=== PATIENT | male | born 1950 | race Caucasian/White ===

== ENCOUNTER 2017-03-09 20:26 | Emergency (ER) | payer MEDICARE, MEDICAID ==
[2017-03-09] MEDS ORDERED: ONDANSETRON HCL IV 4 MG/2 ML VIAL IM ONE (20:52)
[2017-03-09] MEDS ORDERED: HYDROMORPHONE HCL 1 MG/ML CPJ IM ONE (20:52)
--- NOTE | 2017-03-09 20:58 | Emergency Department Record ---
History of Present Illness - General Chief Complaint: Back Pain/Injury Stated Complaint: BACK PAIN Time Seen by Provider: 03/09/17 20:48 Source: Patient - History of Present Illness Initial Comments: Patient was lifting a very heavy piece of equipment earlier this afternoon when he felt the right side of his lower back "pop." Since then his lower back has been hurting increasingly. Around 3:30 he took two norco/5's (which he has for arthritis pain), but they haven't helped. A heating pad has made it worse, so he came here. The pain radiates into the back and side of his right thigh less than half way down. He has no symptoms in his distal thigh, knee or leg. MD Complaint: Back injury Severity scale (1-10): 8 Quality: Sharp, Stabbing Consistency: Constant Worsens With: Movement, Walking Context: While lifting - Related Data Allergies Allergy/AdvReac Type Severity Reaction Status Date / Time ibuprofen [From Advil] Allergy Intermediate GI upset, Unverified 02/14/17 16:06 rash Penicillins Allergy unknown Unverified 02/14/17 16:06 aspirin AdvReac Intermediate GI upset Unverified 02/14/17 16:06 Travel Screening - Travel/Exposure Within Last 30 Days Have you traveled within the last 30 days?: No Review of Systems Reviewed: No additional complaints except as noted below Constitutional: Reports: As per HPI. Denies: Chills, Fever, Malaise, Night sweats, Weakness, Weight change Eyes: Reports: As per HPI. Denies: Eye discharge, Eye pain, Photophobia, Vision change ENT: Reports: As per HPI. Denies: Congestion, Dental pain, Ear pain, Epistaxis , Hearing loss, Throat pain Respiratory: Reports: As per HPI. Denies: Cough, Dyspnea, Hemoptysis, Stridor, Wheezes Cardiovascular: Reports: As per HPI. Denies: Arrhythmia, Chest pain, Dyspnea on exertion, Edema, Murmurs, Orthopnea, Palpitations, Paroxysmal nocturnal dyspnea, Rheumatic Fever, Syncope Endocrine: Reports: As per HPI. Denies: Fatigue, Heat or cold intolerance, Polydipsia, Polyuria Gastrointestinal: Reports: As per HPI. Denies: Abdominal pain, Constipation, Diarrhea, Hematemesis, Hematochezia, Melena, Nausea, Vomiting Genitourinary: Reports: As per HPI. Denies: Dysuria, Frequency, Hematuria, Incontinence, Retention, Testicular pain, Testicular mass, Urgency Musculoskeletal: Reports: As per HPI. Denies: Arthralgia, Back pain, Gout, Joint swelling, Myalgia, Neck pain Skin: Reports: As per HPI. Denies: Bruising, Change in color, Change in hair/ nails, Lesions, Pruritus, Rash Neurological: Reports: As per HPI. Denies: Abnormal gait, Confusion, Headache, Numbness, Paresthesias, Seizure, Tingling, Tremors, Vertigo, Weakness Psychiatric: Reports: As per HPI. Denies: Anxiety, Auditory hallucinations, Depression, Homicidal thoughts, Suicidal thoughts, Visual hallucinations Hematological/Lymphatic: Reports: As per HPI. Denies: Anemia, Blood Clots, Easy bleeding, Easy bruising, Swollen glands Past Medical History - SOCIAL HISTORY Smoking Status: Former smoker - RESPIRATORY Hx Respiratory Disorders: No - CARDIOVASCULAR Hx Cardio Disorders: No Comment:: walking with cane r/t pain - NEURO Hx Neuro Disorders: No - GI Hx GI Disorders: Yes Hx Reflux: Yes - Hx Genitourinary Disorders: No - ENDOCRINE Hx Endocrine Disorders: No - MUSCULOSKELETAL Hx Musculoskeletal Disorders: Yes Hx Arthritis: Yes (back) Comment:: DJD - PSYCH Hx Psych Problems: No - HEMATOLOGY/ONCOLOGY Hx Hematology/Oncology Disorders: No Family Medical History Any Significant Family History?: Yes Hx HTN: Father, Mother Physical Exam - General General Appearance: Alert, Oriented x3, Cooperative, No acute distress - Head Head exam: Normal inspection - Eye Eye exam: Normal appearance, PERRL Pupils: Normal accommodation - ENT ENT exam: Normal exam, Mucous membranes moist, Normal external ear exam, Normal orophraynx, TM's normal bilaterally Ear exam: Normal external inspection. negative: External canal tenderness Nasal Exam: Normal inspection. negative: Discharge, Sinus tenderness Mouth exam: Normal external inspection, Tongue normal Teeth exam: Normal inspection. negative: Dental caries Throat exam: Normal inspection. negative: Tonsillar erythema, Tonsillar exudate - Neck Neck exam: Normal inspection, Full ROM. negative: Tenderness - Respiratory Respiratory exam: Normal lung sounds bilaterally. negative: Respiratory distress - Cardiovascular Cardiovascular Exam: Regular rate, Normal rhythm, Normal heart sounds - GI/Abdominal GI/Abdominal exam: Soft, Normal bowel sounds. negative: Distended, Guarding, Pulsatile mass, Rebound, Rigid, Tenderness - Rectal Rectal exam: Deferred - exam: Deferred - Extremities Extremities exam: Normal inspection, Full ROM, Normal capillary refill. negative: Tenderness - Back Back exam: Reports: Normal inspection, Full ROM, Muscle spasm, Other (right SI regioni tender on palpation with muscle spasm; no midline bony tenderness; distal pulses strong and equal to feet bilaterally, no motor weakness.). Denies : CVA tenderness (R), CVA tenderness (L), Rash noted, Tenderness, Vertebral tenderness - Neurological Neurological exam: Alert, Normal gait, Oriented X3, Reflexes normal - Psychiatric Psychiatric exam: Normal affect, Normal mood - Skin Skin exam: Dry, Intact, Normal color, Warm Course Vital Signs 03/09/17 20:36 Temperature 97.9 F Pulse Rate 60 Respiratory 18 Rate Blood Pressure 182/105 Pulse Ox 97 - Reevaluation(s) Reevaluation #1: Offered the patient an xray of his back, but he states, "I don't need that, I know what's wrong." He is calling for a ride home which he will need to have after his pain shot. He will follow up with his PCP next week for recheck and possible MRI if symptoms do not improve. Patient understands and agrees. 03/09/17 20:51 03/09/17 20:58 Reevaluation #2: Patient states he has enough norco for his back pain and will follow up with his PCP. 03/09/17 21:04 Medical Decision Making - Management Options MDM Management: No Additional Work-up Planned Disposition Disposition: Discharge Clinical Impression: Sciatica of right side Low back strain Qualifiers: Encounter type: initial encounter Qualified Code(s): S39.012A - Strain of muscle, fascia and tendon of lower back, initial encounter Disposition: Home, Self-Care Condition: (1) Good Instructions: Low Back Strain (ED), Sciatica (ED) Additional Instructions: Home, flat bed rest. Do not drive tonight. No lifting bending twisting. Gentle stretches. Ice to area intermittently first 48-72 hours. Take your norco as directed as needed for pain. Follow up with PCP next week if not improved. Consider MRI if not improving. Forms: Patient Portal Access
== END 2017-03-09 21:54 | disposition home or self-care (01) ==
LOC: ER 20:26
DX: S39.012A Strain of muscle, fascia and tendon of lower back, initial encounter (principal); M54.41 Lumbago with sciatica, right side; X50.0XXA Overexertion from strenuous movement or load, initial encounter
CPT/HCPCS: 99283 ×2; 96372; J2405; J1170

== ENCOUNTER 2018-06-23 17:10 | Emergency (ER) | payer MEDICARE, MEDICAID ==
--- NOTE | 2018-06-23 18:25 | Emergency Department Record ---
History of Present Illness - General Chief complaint: Pain Stated complaint: INJURY TO LEFT SIDE RIBS Time Seen by Provider: 06/23/18 18:14 Source: Patient Mode of Arrival: Ambulatory Limitations: No limitations - History of Present Illness Initial comments: 67 yo male presents with left rib pain. He was using a power wheel kids toys down a hill and fell. He injured his left ribs. No injury to the head or neck. No abdominal pain. Intact skin without bruising or abrasions. It hurts to touch the mid lateral ribs. He denies any other injuries. The injury occurred about 4pm. MD Complaint: Other (Rib pain) Onset/Timin -: Days(s) Location: Left, Other History of Same: No -: Yes Myalgia Severity scale (1-10): 5 Quality: Sharp, Stabbing Consistency: Intermittent Improves with: Immobilization, Rest Worsens with: Exertion - Related Data Home Medications Medication Instructions Recorded Confirmed Last Taken Omeprazole [Prilosec] 20 mg PO DAILY 06/23/18 06/23/18 06/23/18 Previous Rx's Medication Instructions Recorded Lidocaine Patch [Lidoderm] 1 ea TOP DAILY #14 patch 06/23/18 Allergies Allergy/AdvReac Type Severity Reaction Status Date / Time ibuprofen [From Advil] Allergy Intermediate GI upset, Verified 06/23/18 17:28 rash Penicillins Allergy unknown Verified 06/23/18 17:28 aspirin AdvReac Intermediate GI upset Verified 06/23/18 17:28 Travel Screening - Travel/Exposure Within Last 30 Days Have you traveled within the last 30 days?: No - Travel/Exposure Within Last Year Have you traveled outside the [place] in the last year?: No - Additonal Travel Details Have you been exposed to anyone with a communicable illness?: No - Travel Symptoms Symptom Screening: None Review of Systems Constitutional: Denies: Chills, Fever, Malaise, Weakness Eyes: Denies: Eye discharge ENT: Denies: Congestion, Throat pain Respiratory: Denies: Cough, Dyspnea, Hemoptysis, Stridor, Wheezes Cardiovascular: Reports: Chest pain (Left ribs, mid chest). Denies: Palpitations, Syncope Endocrine: Denies: Fatigue Gastrointestinal: Denies: Abdominal pain, Diarrhea, Nausea, Vomiting Genitourinary: Denies: Dysuria, Frequency, Hematuria Musculoskeletal: Denies: Arthralgia, Back pain, Joint swelling, Myalgia, Neck pain Skin: Denies: Bruising, Change in color Neurological: Denies: Confusion, Headache Psychiatric: Denies: Anxiety Hematological/Lymphatic: Denies: Blood Clots, Easy bleeding, Easy bruising, Swollen glands Past Medical History - SOCIAL HISTORY Smoking Status: Former smoker Alcohol Use: None Drug Use: Occasional Drug Use Detail:: Marijuana - RESPIRATORY Hx Respiratory Disorders: No - CARDIOVASCULAR Hx Cardio Disorders: No Comment:: walking with cane r/t pain - NEURO Hx Neuro Disorders: No - GI Hx GI Disorders: Yes Hx Reflux: Yes - Hx Genitourinary Disorders: No - ENDOCRINE Hx Endocrine Disorders: No - MUSCULOSKELETAL Hx Musculoskeletal Disorders: Yes Hx Arthritis: Yes (back) Comment:: DJD - PSYCH Hx Psych Problems: No - HEMATOLOGY/ONCOLOGY Hx Hematology/Oncology Disorders: No Family Medical History Any Significant Family History?: Yes Hx HTN: Father, Mother Physical Exam - General General Appearance: Alert, Oriented x3, Cooperative, No acute distress Limitations: No limitations - Head Head exam: Atraumatic, Normocephalic, Normal inspection Head exam detail: negative: Abrasion, Contusion, General tenderness, Hematoma, Laceration - Eye Eye exam: Normal appearance, PERRL. negative: Conjunctival injection, Periorbital swelling - ENT ENT exam: Normal exam, Mucous membranes moist, Normal orophraynx Ear exam: Normal external inspection Nasal Exam: Normal inspection Mouth exam: Normal external inspection Teeth exam: Normal inspection Throat exam: Normal inspection - Neck Neck exam: Normal inspection, Full ROM. negative: Tenderness - Respiratory Respiratory exam: Normal lung sounds bilaterally, Chest wall tenderness (point tender left rib, mid chest, no LUQ tenderness, normal inspection, no bruisinig) . negative: Accessory muscle use, Decreased breath sounds, Prolonged expiratory , Respiratory distress, Rhonchi, Stridor, Wheezes - Cardiovascular Cardiovascular Exam: Regular rate, Normal rhythm, Normal heart sounds Peripheral Pulses: 2+: Radial (R), Radial (L) - GI/Abdominal GI/Abdominal exam: Soft. negative: Distended, Guarding, Rebound, Rigid, Tenderness - Rectal Rectal exam: Deferred - exam: Deferred - Extremities Extremities exam: Normal inspection, Full ROM, Normal capillary refill. negative: Calf tenderness, Joint swelling, Pedal edema, Tenderness - Back Back exam: Reports: Full ROM. Denies: Normal inspection, CVA tenderness (R), CVA tenderness (L), Muscle spasm, Paraspinal tenderness, Rash noted, Tenderness , Vertebral tenderness - Neurological Neurological exam: Alert, CN II-XII intact, Normal gait, Oriented X3. negative : Motor sensory deficit - Psychiatric Psychiatric exam: Normal affect, Normal mood - Skin Skin exam: Dry, Intact, Normal color, Warm Course Vital Signs 06/23/18 17:31 Temperature 98.4 F Pulse Rate 75 Respiratory 16 Rate Blood Pressure 138/91 Pulse Ox 99 - Reevaluation(s) Reevaluation #1: The vitals were reviewed The patient has mid chest lateral tenderness. No other injuries. No abdominal , flank, or LUQ tenderness. Lower rib margins are non tender. 06/23/18 18:22 06/23/18 19:02 The XR was read as negative We discussed the results, home care, and reasons to return to the ED Disposition Disposition: Discharge Clinical Impression: Contusion of rib on left side, Left rib fracture Disposition: Home, Self-Care Condition: (1) Good Instructions: Rib Fracture (ED), Rib Contusion (ED) Additional Instructions: Return to the ED if you have any worsening pain Avoid lifting or activity that cause the pain Call your doctor for a recheck this week. Prescriptions: Lidocaine Patch [Lidoderm] 1 ea TOP DAILY #14 patch Forms: Patient Portal Access Time of Disposition: 19:04 Quality - Quality Measures Quality Measures: N/A - Blood Pressure Screening Does Patient Have Any of the Following: No Blood Pressure Classification: Hypertensive Reading Systolic Measurement: 138 Diastolic Measurement: 91 Screening for High Blood Pressure: < Pre-Hypertensive BP, F/U Documented > [ [id number]] Pre-Hypertensive Follow-up Interventions: Referral to alternative/primary care provider.
--- NOTE | 2018-06-25 14:44 | RADIOLOGY REPORT ---
EXAM: LEFT RIB SERIES HISTORY: INJURY TWO DAYS PRIOR, LEFT CHEST PAIN. TECHNIQUE: PA view of the chest and three views of the left ribs were obtained. Comparison: Chest radiographs 09/15/14. FINDINGS: The cardiac silhouette is within normal size limits. The thoracic aorta is calcified and mildly tortuous. The pulmonary vasculature is nondilated. No focal consolidation. No pleural effusion. No pneumothorax. No definite displaced rib fractures are seen. There are multilevel degenerative changes of the thoracic and lumbar spine. IMPRESSION: NO ACUTE LUNG FINDINGS. NO DISPLACED RIB FRACTURES IDENTIFIED. JOB NUMBER: [id number] MTDD
== END 2018-06-23 19:11 | disposition home or self-care (01) ==
LOC: ER 17:10
DX: S22.32XA Fracture of one rib, left side, initial encounter for closed fracture (principal); W17.81XA Fall down embankment (hill), initial encounter; Z87.891 Personal history of nicotine dependence
CPT/HCPCS: 99283

== ENCOUNTER 2018-07-13 23:41 | Emergency (ER) | payer MEDICARE, MEDICAID ==
--- NOTE | 2018-07-13 23:53 | Emergency Department Record ---
History of Present Illness - General Chief Complaint: Hypertension Stated Complaint: HYPERTENSION Source: Patient Mode of Arrival: Ambulatory Limitations: No limitations - History of Present Illness Initial Comments: 68 yo male presents with concerns about his blood pressure. He was seen on the by his PCP. His BP was noted to be elevated at that time. He was started on Lisinopril. His BP was check this evening as was noted to be elevated. He is not having any current symptoms. No dizziness, headaches, vision changes, speech changes, chest pain, shortness of breath, cough, leg swelling, back or abdominal pain. He has labs performed recently as well. There were no acute abnormalities. CR was 1.1. MD Complaint: Other (Asymptomatic elevated blood pressure) -: Days(s) (1) Timing: Intermittent Description: Other (No symptoms) History of Same: Yes Improves With: Nothing Worsens With: Nothing Associated Symptoms: Other (anxiety) - Shannon Coma Scale Eye Response: (4) Open spontaneously Motor Response: (6) Obeys commands Verbal Response: (5) Oriented Shannon Total: 15 - Related Data Allergies Allergy/AdvReac Type Severity Reaction Status Date / Time ibuprofen [From Advil] Allergy Intermediate GI upset, Verified 07/13/18 23:45 rash Penicillins Allergy unknown Verified 07/13/18 23:45 aspirin AdvReac Intermediate GI upset Verified 07/13/18 23:45 Review of Systems Constitutional: Denies: Chills, Fever, Malaise, Weakness Eyes: Denies: Eye discharge, Eye pain, Photophobia, Vision change ENT: Denies: Congestion, Ear pain, Throat pain Respiratory: Denies: Cough, Dyspnea Cardiovascular: Denies: Chest pain, Palpitations, Syncope Endocrine: Denies: Fatigue Gastrointestinal: Denies: Abdominal pain, Diarrhea, Nausea, Vomiting Genitourinary: Denies: Dysuria, Frequency, Hematuria Musculoskeletal: Reports: Myalgia (just now in the room his left calf hurt). Denies: Arthralgia, Back pain, Neck pain Skin: Denies: Bruising, Change in color, Rash Neurological: Denies: Abnormal gait, Confusion, Headache, Numbness, Seizure, Tingling, Tremors, Vertigo, Weakness Psychiatric: Reports: Anxiety Hematological/Lymphatic: Denies: Blood Clots, Easy bleeding, Easy bruising Past Medical History - SOCIAL HISTORY Smoking Status: Former smoker Drug Use: Occasional Drug Use Detail:: Marijuana - RESPIRATORY Hx Respiratory Disorders: No - CARDIOVASCULAR Hx Cardio Disorders: No Comment:: walking with cane r/t pain - NEURO Hx Neuro Disorders: No - GI Hx GI Disorders: Yes Hx Reflux: Yes - Hx Genitourinary Disorders: No - ENDOCRINE Hx Endocrine Disorders: No - MUSCULOSKELETAL Hx Musculoskeletal Disorders: Yes Hx Arthritis: Yes (back) Comment:: DJD - PSYCH Hx Psych Problems: No - HEMATOLOGY/ONCOLOGY Hx Hematology/Oncology Disorders: No Family Medical History Hx HTN: Father, Mother Physical Exam - General General Appearance: Alert, Oriented x3, Cooperative, No acute distress Limitations: No limitations - Head Head exam: Atraumatic, Normocephalic, Normal inspection - Eye Eye exam: Normal appearance, PERRL, EOMI. negative: Conjunctival injection, Nystagmus, Periorbital swelling, Scleral icterus - ENT ENT exam: Normal exam, Mucous membranes moist, Normal orophraynx Ear exam: Normal external inspection Nasal Exam: Normal inspection Mouth exam: Normal external inspection - Neck Neck exam: Normal inspection - Respiratory Respiratory exam: Normal lung sounds bilaterally. negative: Respiratory distress - Cardiovascular Cardiovascular Exam: Regular rate, Normal rhythm, Normal heart sounds - GI/Abdominal GI/Abdominal exam: Soft. negative: Tenderness - Rectal Rectal exam: Deferred - exam: Deferred - Extremities Extremities exam: Normal inspection. negative: Calf tenderness, Pedal edema, Tenderness - Back Back exam: Reports: Normal inspection - Neurological Neurological exam: Alert, CN II-XII intact, Normal gait, Oriented X3. negative : Abnormal gait, Altered, Motor sensory deficit - Psychiatric Psychiatric exam: Anxious - Skin Skin exam: Dry, Intact, Normal color, Warm Course Vital Signs 07/13/18 23:43 Temperature 98.4 F Pulse Rate [ 70 Pulse Ox Probe] Respiratory 20 Rate Blood Pressure 199/111 [Left Arm] Pulse Ox 99 - Reevaluation(s) Reevaluation #1: The patient has asymptomatic hypertension He just started a new medication this week His labs were reviewed. No end organ injury. He is not having any current symptoms to suggest hypertensive urgency/emergency I reassured him regarding his BP that he just started treatment and will need to continue his medication that were started in the last 3 days. He will recheck with his doctor this week regarding his blood pressure We discussed symptoms that should prompt him to immediately return to the ED 07/13/18 23:51 Disposition Disposition: Discharge Clinical Impression: Asymptomatic hypertension Disposition: Home, Self-Care Condition: (1) Good Instructions: Hypertension (ED) Additional Instructions: Call your doctor to check your blood pressure this week Take your new medication as directed Return if you have headache, vision changes, dizziness, chest pain, short of breath, swelling or new concerns Forms: Patient Portal Access Quality - Quality Measures Quality Measures: N/A - Blood Pressure Screening Does Patient Have Any of the Following: Active Dx of HTN Blood Pressure Classification: Hypertensive Reading Systolic Measurement: 170 Diastolic Measurement: 108 Screening for High Blood Pressure: Patient Exclusion, Hx of HTN [G9744]
== END 2018-07-14 00:12 | disposition home or self-care (01) ==
LOC: ER 23:41
DX: I10 Essential (primary) hypertension (principal); Z87.891 Personal history of nicotine dependence
CPT/HCPCS: 99282

== ENCOUNTER 2018-07-16 17:13 | Emergency (ER) | payer MEDICARE, MEDICAID ==
[2018-07-16] MEDS ORDERED: CLONIDINE HCL 0.1 MG TABLET PO ONE (17:37)
--- NOTE | 2018-07-16 17:39 | Emergency Department Record ---
History of Present Illness - General Chief Complaint: Hypertension Stated Complaint: HIGH BLOOD PRESSURE Time Seen by Provider: 07/16/18 17:28 Source: Patient Mode of Arrival: Ambulatory - History of Present Illness Initial Comments: patient here with high Blood pressure and he saw Dr. Conde and his lisinopril was doubled and he has not taken that yet and he came to the Ed for advise. patient did not bring his meds in to confirm what dose of lisinopril he is taking. Patient denies chest pain headache and any problems moving his arms or legs. No abdominal pain and he is seeing his Dr in one week. His mom and dad had hypertension and previous to this diag he was a heavy salt eater and that has been stopped and he is cutting back on his pepsi Onset/Timin -: Week(s) Timing: Gradual onset History of Same: No History of Trauma: No Improves With: Medication Worsens With: Nothing Associated Symptoms: Denies other symptoms - Shannon Coma Scale Eye Response: (4) Open spontaneously Motor Response: (6) Obeys commands Verbal Response: (5) Oriented Shannon Total: 15 - Related Data Allergies Allergy/AdvReac Type Severity Reaction Status Date / Time ibuprofen [From Advil] Allergy Intermediate GI upset, Verified 07/16/18 17:21 rash Penicillins Allergy unknown Verified 07/16/18 17:21 aspirin AdvReac Intermediate GI upset Verified 07/16/18 17:21 Travel Screening - Travel/Exposure Within Last 30 Days Have you traveled within the last 30 days?: No - Travel/Exposure Within Last Year Have you traveled outside the [place] in the last year?: No - Additonal Travel Details Have you been exposed to anyone with a communicable illness?: No - Travel Symptoms Symptom Screening: None Review of Systems Reviewed: No additional complaints except as noted below Constitutional: Reports: As per HPI. Denies: Chills, Fever, Malaise, Night sweats, Weakness, Weight change Eyes: Reports: As per HPI. Denies: Eye discharge, Eye pain, Photophobia, Vision change ENT: Reports: As per HPI. Denies: Congestion, Dental pain, Ear pain, Epistaxis , Hearing loss, Throat pain Respiratory: Reports: As per HPI. Denies: Cough, Dyspnea, Hemoptysis, Stridor, Wheezes Cardiovascular: Reports: As per HPI. Denies: Arrhythmia, Chest pain, Dyspnea on exertion, Edema, Murmurs, Orthopnea, Palpitations, Paroxysmal nocturnal dyspnea, Rheumatic Fever, Syncope Endocrine: Reports: As per HPI. Denies: Fatigue, Heat or cold intolerance, Polydipsia, Polyuria Gastrointestinal: Reports: As per HPI. Denies: Abdominal pain, Constipation, Diarrhea, Hematemesis, Hematochezia, Melena, Nausea, Vomiting Genitourinary: Reports: As per HPI. Denies: Dysuria, Frequency, Hematuria, Incontinence, Retention, Testicular pain, Testicular mass, Urgency Musculoskeletal: Reports: As per HPI. Denies: Arthralgia, Back pain, Gout, Joint swelling, Myalgia, Neck pain Skin: Reports: As per HPI. Denies: Bruising, Change in color, Change in hair/ nails, Lesions, Pruritus, Rash Neurological: Reports: As per HPI. Denies: Abnormal gait, Confusion, Headache, Numbness, Paresthesias, Seizure, Tingling, Tremors, Vertigo, Weakness Psychiatric: Reports: As per HPI. Denies: Anxiety, Auditory hallucinations, Depression, Homicidal thoughts, Suicidal thoughts, Visual hallucinations Hematological/Lymphatic: Reports: As per HPI. Denies: Anemia, Blood Clots, Easy bleeding, Easy bruising, Swollen glands Past Medical History - SOCIAL HISTORY Smoking Status: Former smoker Alcohol Use: None Drug Use: Occasional Drug Use Detail:: Marijuana - RESPIRATORY Hx Respiratory Disorders: No - CARDIOVASCULAR Hx Cardio Disorders: No Comment:: walking with cane r/t pain - NEURO Hx Neuro Disorders: No - GI Hx GI Disorders: Yes Hx Reflux: Yes - Hx Genitourinary Disorders: No - ENDOCRINE Hx Endocrine Disorders: No - MUSCULOSKELETAL Hx Musculoskeletal Disorders: Yes Hx Arthritis: Yes (back) Comment:: DJD - PSYCH Hx Psych Problems: No - HEMATOLOGY/ONCOLOGY Hx Hematology/Oncology Disorders: No Family Medical History Any Significant Family History?: Yes Hx HTN: Father, Mother Physical Exam - General General Appearance: Alert, Oriented x3, Cooperative, No acute distress - Head Head exam: Normal inspection - Eye Eye exam: Normal appearance, PERRL Pupils: Normal accommodation - ENT ENT exam: Normal exam, Mucous membranes moist, Normal external ear exam, Normal orophraynx, TM's normal bilaterally Ear exam: Normal external inspection. negative: External canal tenderness Nasal Exam: Normal inspection. negative: Discharge, Sinus tenderness Mouth exam: Normal external inspection, Tongue normal Teeth exam: Normal inspection. negative: Dental caries Throat exam: Normal inspection. negative: Tonsillar erythema, Tonsillar exudate - Neck Neck exam: Normal inspection, Full ROM. negative: Tenderness - Respiratory Respiratory exam: Normal lung sounds bilaterally. negative: Respiratory distress - Cardiovascular Cardiovascular Exam: Regular rate, Normal rhythm, Normal heart sounds - GI/Abdominal GI/Abdominal exam: Soft, Normal bowel sounds. negative: Tenderness - Rectal Rectal exam: Deferred - exam: Deferred - Extremities Extremities exam: Normal inspection, Full ROM, Normal capillary refill. negative: Tenderness - Back Back exam: Reports: Normal inspection, Full ROM. Denies: Muscle spasm, Rash noted, Tenderness - Neurological Neurological exam: Alert, Normal gait, Oriented X3, Reflexes normal - Psychiatric Psychiatric exam: Normal affect, Normal mood - Skin Skin exam: Dry, Intact, Normal color, Warm Course Vital Signs 07/16/18 17:23 Temperature 98 F Pulse Rate 67 Respiratory 20 Rate Blood Pressure 190/100 Pulse Ox 100 - Reevaluation(s) Reevaluation #1: 07/16/18 17:59 bp came down and patient feels more comfortable going home he was concerned about the numbers Disposition Clinical Impression: Hypertension Qualifiers: Hypertension type: essential hypertension Qualified Code(s): I10 - Essential ( primary) hypertension Disposition: Home, Self-Care Condition: (1) Good Instructions: Hypertension (ED) Additional Instructions: follow up with Dr. Conde as planned next week and start his new medication tomorrow as planned Time of Disposition: 17:59 Quality - Quality Measures Quality Measures: N/A - Blood Pressure Screening Does Patient Have Any of the Following: No, Active Dx of HTN Blood Pressure Classification: Hypertensive Reading Systolic Measurement: 190 Diastolic Measurement: 100 Screening for High Blood Pressure: Patient Exclusion, Hx of HTN [G9744]
== END 2018-07-16 18:05 | disposition home or self-care (01) ==
LOC: ER 17:13
DX: I10 Essential (primary) hypertension (principal); Z87.891 Personal history of nicotine dependence
CPT/HCPCS: 99282

== ENCOUNTER 2018-09-10 18:15 | Emergency (ER) | payer MEDICARE, MEDICAID ==
--- NOTE | 2018-09-10 18:44 | Emergency Department Record ---
History of Present Illness - General Chief Complaint: Recheck - Other Stated Complaint: ELEVATED TEST LEVEL Time Seen by Provider: 09/10/18 18:31 Source: Patient - History of Present Illness Initial Comments: patient was called by his Dr Conde and told to come to the ED for evaluation of his BP being low and his creatine went up to 1.6 and bun is 30 previous creat 1.1 and he denies chest pain or dyspnea and he was told by his Dr to come for evaluation. Patient is not dizzy and not SOB and no chest pain. Onset/Timin -: Hour(s) Initial Visit For: Other Returns Today for: Called because of abnormal lab/test Symptoms Since Prior Visit: No new symptoms - Related Data Home Medications Medication Instructions Recorded Confirmed Last Taken Omeprazole 40 mg PO DAILY 09/10/18 09/10/18 09/10/18 Allergies Allergy/AdvReac Type Severity Reaction Status Date / Time ibuprofen [From Advil] Allergy Intermediate GI upset, Verified 09/10/18 18:23 rash Penicillins Allergy unknown Verified 09/10/18 18:23 aspirin AdvReac Intermediate GI upset Verified 09/10/18 18:23 Travel Screening - Travel/Exposure Within Last 30 Days Have you traveled within the last 30 days?: No - Travel/Exposure Within Last Year Have you traveled outside the [place] in the last year?: No - Additonal Travel Details Have you been exposed to anyone with a communicable illness?: No - Travel Symptoms Symptom Screening: None Review of Systems Reviewed: No additional complaints except as noted below Constitutional: Reports: As per HPI. Denies: Chills, Fever, Malaise, Night sweats, Weakness, Weight change Eyes: Reports: As per HPI. Denies: Eye discharge, Eye pain, Photophobia, Vision change ENT: Reports: As per HPI. Denies: Congestion, Dental pain, Ear pain, Epistaxis , Hearing loss, Throat pain Respiratory: Reports: As per HPI. Denies: Cough, Dyspnea, Hemoptysis, Stridor, Wheezes Cardiovascular: Reports: As per HPI. Denies: Arrhythmia, Chest pain, Dyspnea on exertion, Edema, Murmurs, Orthopnea, Palpitations, Paroxysmal nocturnal dyspnea, Rheumatic Fever, Syncope Endocrine: Reports: As per HPI. Denies: Fatigue, Heat or cold intolerance, Polydipsia, Polyuria Gastrointestinal: Reports: As per HPI. Denies: Abdominal pain, Constipation, Diarrhea, Hematemesis, Hematochezia, Melena, Nausea, Vomiting Genitourinary: Reports: As per HPI. Denies: Dysuria, Frequency, Hematuria, Incontinence, Retention, Testicular pain, Testicular mass, Urgency Musculoskeletal: Reports: As per HPI. Denies: Arthralgia, Back pain, Gout, Joint swelling, Myalgia, Neck pain Skin: Reports: As per HPI. Denies: Bruising, Change in color, Change in hair/ nails, Lesions, Pruritus, Rash Neurological: Reports: As per HPI. Denies: Abnormal gait, Confusion, Headache, Numbness, Paresthesias, Seizure, Tingling, Tremors, Vertigo, Weakness Psychiatric: Reports: As per HPI. Denies: Anxiety, Auditory hallucinations, Depression, Homicidal thoughts, Suicidal thoughts, Visual hallucinations Hematological/Lymphatic: Reports: As per HPI. Denies: Anemia, Blood Clots, Easy bleeding, Easy bruising, Swollen glands Past Medical History - SOCIAL HISTORY Smoking Status: Former smoker Alcohol Use: None Drug Use: Heavy Drug Use Detail:: Marijuana - RESPIRATORY Hx Respiratory Disorders: No - CARDIOVASCULAR Hx Cardio Disorders: No Comment:: walking with cane r/t pain - NEURO Hx Neuro Disorders: No - GI Hx GI Disorders: Yes Hx Reflux: Yes - Hx Genitourinary Disorders: No - ENDOCRINE Hx Endocrine Disorders: No - MUSCULOSKELETAL Hx Musculoskeletal Disorders: Yes Hx Arthritis: Yes (back) Comment:: DJD - PSYCH Hx Psych Problems: No - HEMATOLOGY/ONCOLOGY Hx Hematology/Oncology Disorders: No Family Medical History Any Significant Family History?: Yes Hx HTN: Father, Mother Physical Exam - General General Appearance: Alert, Oriented x3, Cooperative, No acute distress - Head Head exam: Normal inspection - Eye Eye exam: Normal appearance, PERRL Pupils: Normal accommodation - ENT ENT exam: Normal exam, Mucous membranes moist, Normal external ear exam, Normal orophraynx, TM's normal bilaterally Ear exam: Normal external inspection. negative: External canal tenderness Nasal Exam: Normal inspection. negative: Discharge, Sinus tenderness Mouth exam: Normal external inspection, Tongue normal Teeth exam: Normal inspection. negative: Dental caries Throat exam: Normal inspection. negative: Tonsillar erythema, Tonsillar exudate - Neck Neck exam: Normal inspection, Full ROM. negative: Tenderness - Respiratory Respiratory exam: Normal lung sounds bilaterally. negative: Respiratory distress - Cardiovascular Cardiovascular Exam: Regular rate, Normal rhythm, Normal heart sounds - GI/Abdominal GI/Abdominal exam: Soft, Normal bowel sounds. negative: Tenderness - Rectal Rectal exam: Deferred - exam: Deferred - Extremities Extremities exam: Normal inspection, Full ROM, Normal capillary refill. negative: Tenderness - Back Back exam: Reports: Normal inspection, Full ROM. Denies: Muscle spasm, Rash noted, Tenderness - Neurological Neurological exam: Alert, Normal gait, Oriented X3, Reflexes normal - Psychiatric Psychiatric exam: Normal affect, Normal mood - Skin Skin exam: Dry, Intact, Normal color, Warm Course Vital Signs 09/10/18 18:25 Temperature 98.1 F Pulse Rate 78 Respiratory 20 Rate Blood Pressure 93/67 Pulse Ox 97 Medical Decision Making - Lab Data Result diagrams: 09/10/18 18:35 09/10/18 18:35 Disposition Clinical Impression: Dehydration Hypotension Qualifiers: Hypotension type: hypotension due to hypovolemia Qualified Code(s): I95.89 - Other hypotension; E86.1 - Hypovolemia Disposition: Home, Self-Care Condition: (1) Good Additional Instructions: follow up with Dr. Conde in one week take one half of chlorthalidone 12.5 mg per day and see your DrPrieto in one week and have the creat checked again Forms: Patient Portal Access Time of Disposition: 18:57 Quality - Quality Measures Quality Measures: N/A - Blood Pressure Screening Does Patient Have Any of the Following: No Blood Pressure Classification: Normal BP Reading Systolic Measurement: 93 Diastolic Measurement: 67 Screening for High Blood Pressure: < Normal BP, F/U Not Required > [G8783]
[2018-09-10 18:58] LABS: BASO % 0.5 % (0-6); EOS % 3.7 % (0-6); GRAN % 60.9 % (47-80); HEMATOCRIT 41.3 % (42.0-52.0); HEMOGLOBIN 14.8 gm/dl (14.0-18.0); MEAN CELL VOLUME 90.2 fl (81-97); MEAN CORPUSCULAR HEMOGLOBIN 32.3 pg (27-33); MEAN CORPUSCULAR HGB CONC 35.8 g/dl (32-36); MEAN PLATELET VOLUME 11.1 fl (7.4-10.4); MONO % 6.9 % (0-9); PLATELET COUNT 224 K/uL (130-400); RED BLOOD COUNT 4.58 M/uL (4.40-5.70); URINE APPEARANCE CLEAR; URINE BILIRUBIN NEGATIVE (NEGATIVE); URINE BLOOD NEGATIVE (NEGATIVE); URINE COLOR YELLOW; URINE GLUCOSE (UA) NEGATIVE (NEGATIVE); URINE KETONE NEGATIVE (NEGATIVE); URINE LEUKOCYTE ESTERASE NEGATIVE (NEGATIVE); URINE NITRITE NEGATIVE (NEGATIVE); URINE PROTEIN NEGATIVE (NEGATIVE); URINE UROBILINOGEN 0.2 E.U./dL (0.20 - 1.00); WHITE BLOOD COUNT W/O DIFF 7.4 K/uL (4.2-12.2)
[2018-09-10 19:12] LABS: CREATININE 1.9 mg/dL (0.7-1.2)
== END 2018-09-10 19:11 | disposition home or self-care (01) ==
LOC: ER 18:15
DX: I95.89 Other hypotension (principal); E86.0 Dehydration; E86.1 Hypovolemia
CPT/HCPCS: 80048; 81003; 85025; 99283

== ENCOUNTER 2018-12-09 18:14 | Observation (INO) | payer MEDICARE, MEDICAID ==
--- NOTE | 2018-12-09 18:29 | Emergency Department Record ---
History of Present Illness - General Chief complaint: Extremity Problem Stated complaint: LEG PAIN Time Seen by Provider: 12/09/18 18:24 Source: Patient Mode of Arrival: Ambulatory Limitations: No limitations - History of Present Illness Initial comments: 68 yo male presents to ED for evaluation of bilateral calf pain for the past several days associated with swelling symptoms. 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 Patient talked with his PCP, was told to elevated his lower extremities to reduce swelling which did improve his symptoms. Patient denies history of DVT, does report a history of HTN that he takes Norvasc for. Patient also reports taking [place] for his symptoms that helped somewhat. MD Complaint: Extremity pain, Extremity swelling Onset/Timin -: Days(s) Location: Bilateral, Lower Leg History of Same: No Radiation: None Quality: Aching Consistency: Constant Improves with: Elevation Worsens with: Walking, Weight bearing Associated Symptoms: Denies other symptoms - Related Data Allergies Allergy/AdvReac Type Severity Reaction Status Date / Time ibuprofen [From Advil] Allergy Intermediate GI upset, Verified 12/09/18 18:18 rash Iodinated Contrast- Oral and Allergy ANAPHYLAXIS Verified 12/09/18 22:35 IV Dye Penicillins Allergy unknown Verified 12/09/18 18:18 aspirin AdvReac Intermediate GI upset Verified 12/09/18 18:18 Travel Screening - Travel/Exposure Within Last 30 Days Have you traveled within the last 30 days?: No - Travel/Exposure Within Last Year Have you traveled outside the [place] in the last year?: No - Additonal Travel Details Have you been exposed to anyone with a communicable illness?: No - Travel Symptoms Symptom Screening: None Review of Systems Constitutional: Denies: Chills, Fever, Malaise, Night sweats Eyes: Denies: Eye discharge, Eye pain ENT: Denies: Congestion, Ear pain, Epistaxis Respiratory: Denies: Cough, Dyspnea Cardiovascular: Denies: Chest pain, Dyspnea on exertion Endocrine: Denies: Fatigue, Heat or cold intolerance Gastrointestinal: Denies: Abdominal pain, Nausea, Vomiting Genitourinary: Denies: Incontinence, Retention Musculoskeletal: Reports: Myalgia. Denies: Arthralgia, Back pain Skin: Denies: Bruising, Change in color Neurological: Denies: Abnormal gait, Confusion, Headache, Tingling, Tremors Psychiatric: Denies: Anxiety Hematological/Lymphatic: Denies: Anemia, Blood Clots Past Medical History - SOCIAL HISTORY Smoking Status: Former smoker Alcohol Use: None Drug Use: None - RESPIRATORY Hx Respiratory Disorders: No - CARDIOVASCULAR Hx Cardio Disorders: No Comment:: walking with cane r/t pain - NEURO Hx Neuro Disorders: No - GI Hx GI Disorders: Yes Hx Reflux: Yes - Hx Genitourinary Disorders: No - ENDOCRINE Hx Endocrine Disorders: No - MUSCULOSKELETAL Hx Musculoskeletal Disorders: Yes Hx Arthritis: Yes (back) Comment:: DJD - PSYCH Hx Psych Problems: No - HEMATOLOGY/ONCOLOGY Hx Hematology/Oncology Disorders: No Family Medical History Any Significant Family History?: Yes Hx HTN: Father, Mother Physical Exam - General General Appearance: Alert, Oriented x3, Cooperative, No acute distress Limitations: No limitations - Head Head exam: Atraumatic, Normocephalic, Normal inspection Head exam detail: negative: Abrasion, Contusion, Rankin's sign, General tenderness, Hematoma, Laceration - Eye Eye exam: Normal appearance. negative: Conjunctival injection, Periorbital swelling, Periorbital tenderness, Scleral icterus - ENT Ear exam: negative: Auricular hematoma, Auricular trauma Nasal Exam: negative: Active bleeding, Discharge, Dried blood, Foreign body Mouth exam: negative: Drooling, Laceration, Muffled voice, Tongue elevation - Neck Neck exam: Normal inspection. negative: Meningismus, Tenderness - Respiratory Respiratory exam: Normal lung sounds bilaterally. negative: Respiratory distress, Rhonchi, Stridor, Wheezes - Cardiovascular Cardiovascular Exam: Regular rate, Normal rhythm, Normal heart sounds - GI/Abdominal GI/Abdominal exam: Soft. negative: Rebound, Rigid, Tenderness - Rectal Rectal exam: Deferred - exam: Deferred - Extremities Extremities exam: Calf tenderness, Full ROM - Back Back exam: Denies: CVA tenderness (R), CVA tenderness (L) - Neurological Neurological exam: Alert, Normal gait, Oriented X3 - Psychiatric Psychiatric exam: Normal affect, Normal mood - Skin Skin exam: Normal color. negative: Abrasion Type of lesion: negative: abrasion Course Vital Signs 12/09/18 18:19 Temperature 97.9 F Pulse Rate 77 Respiratory 18 Rate Blood Pressure 144/88 Pulse Ox 100 - Reevaluation(s) Reevaluation #1: 12/09/18 19:47 Labs reviewed and are grossly unremarkable for an acute process. Doppler LE's: Non-occlusive clot right iliac vein No other DVT noted on examination. Will administer Lovenox SQ, obtain CTA chest, and re-evaluate. Reevaluation #2: 12/09/18 21:[address] imaging, appears to have had an anaphylactic reaction following CTA of the chest. patient was given benadryl 25 mg IV, solumedrol 125 mg IV, and epi 0.3mg IM with improvement in his symptoms. Will continue to monitor closely Reevaluation #3: 12/09/18 21:58 EKG: Sinus tachycardia 101 Normal axis, normal intervals No acute ST-T wave changes are present Mild artifact present. Reevaluation #4: 12/09/18 22:13 CTA Chest: No PE No acute chest pathology Small nodules right lung, recommend follow-up CT in 6 months BP 140/84, pulse 105, 98% 2L NC Will continue to monitor closely. Reevaluation #5: 12/09/18 22:53 Troponin is negative for myocardial injury, and the patient is resting comfortably and calmly at this time. Will admit for further evaluation. 12/10/18 06:15 AM Repeat Tropoinin appears negative for myocardial injury. Case was discussed with Nathalia Ro NP, will accept admission at this time. Medical Decision Making - Lab Data Result diagrams: 12/09/18 18:35 12/09/18 18:35 Critical Care Time Critical Care Time: Yes Total Critical Care Time: 60 Critical Care Time: Diagnosis and treatment of anaphylactic reaction, frequent reassessments, stabilization, EKG interpretation, cardiac evaluation following event. Disposition Disposition: Admit Clinical Impression: DVT of proximal leg (deep vein thrombosis) Qualifiers: Chronicity: acute Laterality: right Qualified Code(s): I82.4Y1 - Acute embolism and thrombosis of unspecified deep veins of right proximal lower extremity Anaphylactic reaction Qualifiers: Encounter type: initial encounter Qualified Code(s): T78.2XXA - Anaphylactic shock, unspecified, initial encounter Disposition: Still a Patient at [facility] Decision to Admit: Admit from ER Decision to Admit Date: 12/09/18 Decision to Admit Time: 22:53 Condition: (2) Stable Time of Disposition: 22:54 Quality - Quality Measures Quality Measures: N/A - Blood Pressure Screening Does Patient Have Any of the Following: Active Dx of HTN Blood Pressure Classification: Pre-Hypertensive BP Reading Systolic Measurement: 144 Diastolic Measurement: 88 Screening for High Blood Pressure: Patient Exclusion, Hx of HTN [G9744]
[2018-12-09 18:39] LABS: BASO % 0.4 % (0-6); EOS % 4.1 % (0-6); GRAN % 60.4 % (47-80); HEMATOCRIT 40.6 % (42.0-52.0); HEMOGLOBIN 14.3 gm/dl (14.0-18.0); MEAN CELL VOLUME 91.6 fl (81-97); MEAN CORPUSCULAR HEMOGLOBIN 32.3 pg (27-33); MEAN CORPUSCULAR HGB CONC 35.2 g/dl (32-36); MEAN PLATELET VOLUME 10.6 fl (7.4-10.4); MONO % 8.1 % (0-9); PLATELET COUNT 178 K/uL (130-400); RED BLOOD COUNT 4.43 M/uL (4.40-5.70); RED CELL DISTRIBUTION WIDTH 12.3 % (11.5-14.5); WHITE BLOOD COUNT W/O DIFF 5.3 K/uL (4.2-12.2)
[2018-12-09 18:53] LABS: BLOOD UREA NITROGEN 16 mg/dL (8-23); CREATININE 1.2 mg/dL (0.7-1.2); EST GLOMERULAR FILTRATION RATE > 60 mL/min
[2018-12-09 18:55] LABS: GLUCOSE,RANDOM 111 mg/dL (74-109)
[2018-12-09 18:58] LABS: CREATINE PHOSPHOKINASE 148 U/L (39-308)
[2018-12-09] MEDS ORDERED: ENOXAPARIN 100 MG/ML SYR SQ ONE (20:29)
[2018-12-09] MEDS ORDERED: DIPHENHYDRAMINE HCL 50 MG/ML VIAL IVP ONE (21:30)
[2018-12-09] MEDS ORDERED: METHYLPREDNISOLONE PF 125MG/VIAL IVP ONE (21:30)
[2018-12-09] MEDS ORDERED: EPINEPHRINE 1 MG/ML AMPUL IM ONE (21:33)
[2018-12-09] MEDS: 0.9 % SODIUM CHLORIDE 1000ML 500 ML IV SCH ×2 (21:49→22:45)
[2018-12-09] MEDS ORDERED: LORAZEPAM 2 MG/ML VIAL IV ONE (21:59)
[2018-12-09] MEDS ORDERED: 0.9 % SODIUM CHLORIDE 1000ML 1,000 ML IV SCH (22:45)
[2018-12-09] MEDS ORDERED: HYDROCODONE/APAP 5/325MG TABLET PO PRN (23:41)
[2018-12-10] MEDS: 0.9 % SODIUM CHLORIDE 1000ML 1,000 ML IV PRN ×2 (00:23→08:29)
[2018-12-10] MEDS ORDERED: PANTOPRAZOLE SODIUM 40 MG TABLET PO SCH (07:00)
--- NOTE | 2018-12-10 07:30 | US VENOUS DOPPLER REPORT ---
EXAM: DUPLEX DOPPLER ULTRASOUND EXAMINATION OF THE BILATERAL LOWER EXTREMITIES HISTORY: DVT. TECHNIQUE: Duplex Doppler ultrasound examination and real-time erazo scale ultrasound examination of the bilateral lower extremity veins was performed. No comparison studies are available. FINDINGS: Within the right lower extremity, the right external iliac vein demonstrates incomplete compression. The Duplex Doppler ultrasound examination of the right external iliac vein demonstrates central flow with lack of flow at the margins of the vein. These findings suggest a nonocclusive thrombus within the right external iliac vein. In addition the patient demonstrates pain when compression was held at this region. The right greater saphenous, proximal femoral, mid femoral, distal femoral, and popliteal vein demonstrates normal compressibility and augmentation. The right peroneal, posterior tibial and anterior tibial veins demonstrate normal flow and augmentation. The left external iliac, common femoral, greater saphenous, proximal, mid and distal superficial femoral and popliteal veins demonstrate normal compression and augmentation. The left peroneal, posterior tibial and anterior tibial veins demonstrate normal flow and augmentation. Within the bilateral calf muscles, there are small foci of decreased echogenicity. This finding may represent disruption of the fibers from a tear. If there is further clinical concern then an MRI of the bilateral legs can be obtained for further evaluation. IMPRESSION: 1. FINDINGS SUSPICIOUS FOR A NONOCCLUSIVE THROMBUS WITHIN THE RIGHT EXTERNAL ILIAC VEIN. 2. THE REMAINDER OF THE VISUALIZED VESSELS ARE UNREMARKABLE DISCUSSED ABOVE. 3. POSSIBLE MUSCLE TEARS WITHIN THE BILATERAL CALVES DISCUSSED ABOVE. IF THERE IS FURTHER CLINICAL CONCERN THEN MRI OF THE BILATERAL LEGS CAN BE OBTAINED FOR FURTHER EVALUATION. JOB NUMBER: [id number] MTDD
--- NOTE | 2018-12-10 07:37 | CT ANGIOGRAM REPORT ---
EXAM: CTA OF THE CHEST HISTORY: PATIENT HAS BILATERAL CALF PAIN. EVALUATE FOR PE. TECHNIQUE: Serial axial CT scan of the chest was performed at 1.25 mm intervals from the thoracic inlet to the dome of the diaphragm following the intravenous administration of contrast. Comparison: Chest x-ray dated 09/15/14 is provided. FINDINGS: The thoracic inlet is unremarkable. The lung windows demonstrate no CT evidence of a focal infiltrate or pleural effusion. There is nonspecific 4.4 mm nodule within the right lower lobe. Nonspecific 2.3 mm nodule is noted within the right middle lobe. Follow-up CT scan of the chest can be obtained in six months to document stability of finding. The heart size and contours are within normal limits. The thoracic aorta is unremarkable. There is no CT evidence of a focal filling defect within the primary and secondary pulmonary vascular tree to suggest a pulmonary embolus. There is no CT evidence of a mediastinal, hilar or axillary lymphadenopathy. The chest wall is unremarkable. Bone windows demonstrate no CT evidence of an acute fracture or dislocation of the visualized osseous structures. Healed left sided rib fractures are identified. IMPRESSION: 1. NO CT EVIDENCE OF AN ACUTE INTRATHORACIC PROCESS. NO CT EVIDENCE OF A PULMONARY EMBOLUS. 2. NONSPECIFIC 4 MM NODULES ARE IDENTIFIED WITHIN THE RIGHT LUNG FIELD. FOLLOW -UP CT SCAN OF THE CHEST CAN BE OBTAINED IN SIX MONTHS TO DOCUMENT STABILITY OF FINDING. JOB NUMBER: [id number] [facility]
[2018-12-10] MEDS ORDERED: LORATADINE 10 MG TABLET PO SCH (10:30)
[2018-12-10] MEDS ORDERED: APIXABAN 5MG TABLET PO SCH (10:30)
--- NOTE | 2018-12-10 11:10 | History & Physical ---
History of Present Illness - Date of Service Date of Service for History & Physical: 12/11/18 - History of Present Illness Admitting Diagnosis: DVT right external iliac. Anaphylactic reaction History of Present Illness: 68 yo male presents for c/o nataliia calf pain and swelling. 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 Both calves were painful and swollen, called his PCP Dr Conde. She instructed him to elevate his legs, this helped with the edema but did not resolve the pain. PMH HTN, no h/o DVT. 12/09/18 Pt ambulated into [facility] ER for nataliia leg pain and swelling. Denies injury or previous issues. WBC 5.3, Hgb 14.3, Hct 40.6, Plt 178 na 139, K 3.9, BUn 16, Cr 1.2, GFR>60, glucose 111, trop <0.010 97.9, 77, 144/88, 18, 100% RA US revealed right iliac vein non-occlusive clot, no other DVT noted. CTA ordered to r/o PE r/t to the DVT. CTA neg for PE but pt had an anaphylactic reaction to IV contrast. Was given Benadryl 25mg IVP, solumedrol 125mg IVP, and epi 0.3mg IM that resolved the reaction. Subsequent findings of lung nodules, repeat CT in 6 mon with PCP. Admitted for observation s/p anaphylactic reaction, lovenox SQ started for DVT tx. 12/10/18 Pt resting in bed, no distress noted. Pt denies any difficulty breathing, no edema of lips or tongue. Lungs CTA, moving all extremities without difficult. Pulses equal +3 radial, PT, DP. Non pitting edema noted BLE. Pt reports he needs to be D/C's early this AM because he has a small dog at home that has been alone since he came into ER the evening before. Pt denies any needs, states he is in contact with his PCP and will follow up. Pt educated on the danger of the reaction he had, will take claritin 10mg qd and benadryl 25mg QHS for 1 week. POC to start Eliquis for DVT tx. Pt verbalized understanding of new medications. PCP Dr Conde Travel Screening - Travel/Exposure Within Last 30 Days Have you traveled within the last 30 days?: No - Travel/Exposure Within Last Year Have you traveled outside the [place] in the last year?: No - Additonal Travel Details Have you been exposed to anyone with a communicable illness?: No - Travel Symptoms Symptom Screening: None Review of Systems Constitutional: Denies: Chills, Fever, Malaise, Night sweats Eyes: Denies: Eye discharge, Eye pain ENT: Denies: Congestion, Ear pain, Epistaxis Respiratory: Denies: Cough, Dyspnea Cardiovascular: Denies: Chest pain, Dyspnea on exertion Endocrine: Denies: Fatigue, Heat or cold intolerance Gastrointestinal: Denies: Abdominal pain, Nausea, Vomiting Genitourinary: Denies: Incontinence, Retention Musculoskeletal: Reports: Myalgia. Denies: Arthralgia, Back pain Skin: Denies: Bruising, Change in color Neurological: Denies: Abnormal gait, Confusion, Headache, Tingling, Tremors Psychiatric: Denies: Anxiety Hematological/Lymphatic: Denies: Anemia, Blood Clots Past Medical History - SOCIAL HISTORY Smoking Status: Former smoker Alcohol Use: None Drug Use: None - RESPIRATORY Hx Respiratory Disorders: No - CARDIOVASCULAR Hx Cardio Disorders: No Comment:: walking with cane r/t pain - NEURO Hx Neuro Disorders: No - GI Hx GI Disorders: Yes Hx Reflux: Yes - Hx Genitourinary Disorders: No - ENDOCRINE Hx Endocrine Disorders: No - MUSCULOSKELETAL Hx Musculoskeletal Disorders: Yes Hx Arthritis: Yes (back) Comment:: DJD - PSYCH Hx Psych Problems: No - HEMATOLOGY/ONCOLOGY Hx Hematology/Oncology Disorders: No Family Medical History Any Significant Family History?: Yes Hx HTN: Father, Mother H&P Meds/Allergies - Allergies Allergies: Allergies Allergy/AdvReac Type Severity Reaction Status Date / Time ibuprofen [From Advil] Allergy Intermediate GI upset, Verified 12/09/18 18:18 rash Iodinated Contrast- Oral and Allergy ANAPHYLAXIS Verified 12/09/18 22:35 IV Dye Penicillins Allergy unknown Verified 12/09/18 18:18 aspirin AdvReac Intermediate GI upset Verified 12/09/18 18:18 - Home Medications Previous Rx's Medication Instructions Recorded Apixaban [Eliquis] 10 mg PO BID 7 Days #28 tablet 12/10/18 Loratadine [Claritin] 10 mg PO DAILY #30 tablet 12/10/18 - Active Medications Active Medications: Current Medications Hydrocodone Bitart/Acetaminophen ([place] 5mg/325mg) 1 each PO Q4H PRN PRN Reason: PAIN - MOD TO SEVERE (5-10) Last Admin: 12/10/18 01:13 Dose: 1 each Apixaban (Eliquis) 10 mg PO BID [facility] Last Admin: 12/10/18 10:34 Dose: 10 mg Sodium Chloride () 1,000 mls @ 100 mls/hr IV .Q10H PRN PRN Reason: LARGE VOLUME IV Last Admin: 12/10/18 08:29 Dose: 100 mls/hr Loratadine (Claritin) 10 mg PO DAILY [facility] Last Admin: 12/10/18 10:34 Dose: 10 mg Pantoprazole Sodium (Protonix) 80 mg PO DAILYAC [facility] Last Admin: 12/10/18 06:53 Dose: 80 mg Physical Exam - Vital Signs Vital Signs: Vital Signs - Last 24 Hrs Temp Pulse Pulse Pulse Resp BP BP 12/10/18 10:00 98.3 F 90 18 153/86 12/10/18 09:00 81 78 16 12/10/18 06:00 97.2 F L 78 16 136/76 12/10/18 02:00 98.1 F 86 16 140/80 12/09/18 23:41 97.7 F 85 17 140/86 12/09/18 23:33 81 24 123/78 12/09/18 22:17 112 H 26 H 137/82 12/09/18 22:04 105 H 24 140/84 12/09/18 21:53 99 H 32 H 106/71 12/09/18 21:30 66/44 12/09/18 19:34 70 24 126/79 12/09/18 18:19 97.9 F 77 18 144/88 Pulse Ox 12/10/18 10:00 96 12/10/18 09:00 12/10/18 06:00 96 12/10/18 02:00 92 L 12/09/18 23:41 96 12/09/18 23:33 93 L 12/09/18 22:17 100 12/09/18 22:04 98 12/09/18 21:53 94 L 12/09/18 21:30 99 12/09/18 19:34 99 12/09/18 18:19 100 - General General Appearance: Alert, Oriented x3, Cooperative, No acute distress Limitations: No limitations - Head Head exam: Atraumatic, Normocephalic, Normal inspection Head exam detail: negative: Abrasion, Contusion, Rankin's sign, General tenderness, Hematoma, Laceration - Eye Eye exam: Normal appearance. negative: Conjunctival injection, Periorbital swelling, Periorbital tenderness, Scleral icterus - ENT ENT exam: Normal exam, Mucous membranes dry, Mucous membranes moist Ear exam: Normal external inspection. negative: Auricular hematoma, Auricular trauma Nasal Exam: Normal inspection. negative: Active bleeding, Discharge, Dried blood, Foreign body Mouth exam: Normal external inspection, Tongue normal. negative: Drooling, Laceration, Muffled voice, Tongue elevation - Neck Neck exam: Normal inspection. negative: Meningismus, Tenderness - Respiratory Respiratory exam: Normal lung sounds bilaterally. negative: Respiratory distress, Rhonchi, Stridor, Wheezes - Cardiovascular Cardiovascular Exam: Regular rate, Normal rhythm, Normal heart sounds Peripheral Pulses: 3+: Radial (R), Radial (L), Dorsalis Pedis (R), Dorsalis Pedis (L) - GI/Abdominal GI/Abdominal exam: Soft. negative: Rebound, Rigid, Tenderness - Rectal Rectal exam: Deferred - exam: Deferred - Extremities Extremities exam: Calf tenderness, Full ROM - Back Back exam: Denies: CVA tenderness (R), CVA tenderness (L) - Neurological Neurological exam: Alert, Normal gait, Oriented X3 - Psychiatric Psychiatric exam: Normal affect, Normal mood - Skin Skin exam: Normal color. negative: Abrasion Type of lesion: negative: abrasion Results - Labs Result Diagrams: 12/09/18 18:35 12/09/18 18:35 Labs Last 24 Hours: Laboratory Results - last 24 hr 12/09/18 12/09/18 12/09/18 18:35 18:35 22:27 WBC 5.3 RBC 4.43 Hgb 14.3 Hct 40.6 L MCV 91.6 MCH 32.3 MCHC 35.2 RDW 12.3 Plt Count 178 MPV 10.6 H Gran % 60.4 Lymphocytes % 27.0 Monocytes % 8.1 Eosinophils % 4.1 Basophils % 0.4 Sodium 139 Potassium 3.9 Chloride 102 Carbon Dioxide 24.0 Anion Gap 13.0 BUN 16 Creatinine 1.2 Estimated GFR > 60 Random Glucose 111 H Calcium 9.1 Creatine Kinase 148 Troponin T < 0.010 12/10/18 04:59 WBC RBC Hgb Hct MCV MCH MCHC RDW Plt Count MPV Gran % Lymphocytes % Monocytes % Eosinophils % Basophils % Sodium Potassium Chloride Carbon Dioxide Anion Gap BUN Creatinine Estimated GFR Random Glucose Calcium Creatine Kinase Troponin T < 0.010 - Imaging and Cardiology CT scan - chest Status: Report reviewed VTE H&P Assessment - Risk for VTE Risk for VTE: Yes Risk Level: High Risk Assessment Date: 12/10/18 Risk Assessment Time: 11:12 VTE Orders Placed or Will Be Placed: Yes Plan - Detailed Diagnosis and Plan (1) Anaphylactic reaction Status: Acute Qualifiers: Encounter type: initial encounter Qualified Code(s): T78.2XXA - Anaphylactic shock, unspecified, initial encounter Base Code: T78.2XXA - ANAPHYLACTIC SHOCK, UNSPECIFIED, INITIAL ENCOUNTER Comment: 12/10/18 -pt given benadryl, epi, and solumedrol s/p allergic reaction to IV contrast dye 12/09/18 with CTA chest -pt in no distress this AM -d/c with clartin, pepcid, and benadryl at HS x 3 days (2) DVT of proximal leg (deep vein thrombosis) Status: Acute Qualifiers: Chronicity: acute Laterality: right Qualified Code(s): I82.4Y1 - Acute embolism and thrombosis of unspecified deep veins of right proximal lower extremity Base Code: I82.4Y9 - ACUTE EMBLSM AND THOMBOS UNSP DEEP VN UNSP PROX LOW EXTRM Comment: 12/10/18 -eliquis 10mg BID x 7 days then 5mg BID -f/u PCP in 1 week -no heavy lifting until released by PCP (3) Full code status Status: Acute Base Code: Z78.9 - OTHER SPECIFIED HEALTH STATUS Comment: 12/10 -full code status
--- NOTE | 2018-12-10 11:25 | Discharge Summary ---
Providers Discharge Summary Date: 12/10/18 Date of admission: 12/09/18 23:34 Expected Date of Discharge: 12/10/18 Attending physician: BELÉN ALONSO Primary care physician: DILCIA CONDE M.D. Physical Exam - Vital Signs Vital Signs: Vital Signs - Last 24 Hrs Temp Pulse Pulse Pulse Resp BP BP 12/10/18 10:00 98.3 F 90 18 153/86 12/10/18 09:00 81 78 16 12/10/18 06:00 97.2 F L 78 16 136/76 12/10/18 02:00 98.1 F 86 16 140/80 12/09/18 23:41 97.7 F 85 17 140/86 12/09/18 23:33 81 24 123/78 12/09/18 22:17 112 H 26 H 137/82 12/09/18 22:04 105 H 24 140/84 12/09/18 21:53 99 H 32 H 106/71 12/09/18 21:30 66/44 12/09/18 19:34 70 24 126/79 12/09/18 18:19 97.9 F 77 18 144/88 Pulse Ox 12/10/18 10:00 96 12/10/18 09:00 12/10/18 06:00 96 12/10/18 02:00 92 L 12/09/18 23:41 96 12/09/18 23:33 93 L 12/09/18 22:17 100 12/09/18 22:04 98 12/09/18 21:53 94 L 12/09/18 21:30 99 12/09/18 19:34 99 12/09/18 18:19 100 - General General Appearance: Alert, Oriented x3, Cooperative, No acute distress Limitations: No limitations - Head Head exam: Atraumatic, Normocephalic, Normal inspection Head exam detail: negative: Abrasion, Contusion, Rankin's sign, General tenderness, Hematoma, Laceration - Eye Eye exam: Normal appearance. negative: Conjunctival injection, Periorbital swelling, Periorbital tenderness, Scleral icterus - ENT ENT exam: Normal exam, Mucous membranes dry, Mucous membranes moist Ear exam: Normal external inspection. negative: Auricular hematoma, Auricular trauma Nasal Exam: Normal inspection. negative: Active bleeding, Discharge, Dried blood, Foreign body Mouth exam: Normal external inspection, Tongue normal. negative: Drooling, Laceration, Muffled voice, Tongue elevation - Neck Neck exam: Normal inspection. negative: Meningismus, Tenderness - Respiratory Respiratory exam: Normal lung sounds bilaterally. negative: Respiratory distress, Rhonchi, Stridor, Wheezes - Cardiovascular Cardiovascular Exam: Regular rate, Normal rhythm, Normal heart sounds Peripheral Pulses: 3+: Radial (R), Radial (L), Dorsalis Pedis (R), Dorsalis Pedis (L) - GI/Abdominal GI/Abdominal exam: Soft. negative: Rebound, Rigid, Tenderness - Rectal Rectal exam: Deferred - exam: Deferred - Extremities Extremities exam: Calf tenderness, Full ROM - Back Back exam: Denies: CVA tenderness (R), CVA tenderness (L) - Neurological Neurological exam: Alert, Normal gait, Oriented X3 - Psychiatric Psychiatric exam: Normal affect, Normal mood - Skin Skin exam: Normal color. negative: Abrasion Type of lesion: negative: abrasion Hospitalization - Hospitalization Admission Diagnosis: DVT right external iliac. Anaphylactic reaction - Problem List/Discharge Diagnosis (1) Anaphylactic reaction Status: Acute Discharge Diagnosis: Encounter type: initial encounter Qualified Code(s): T78.2XXA - Anaphylactic shock, unspecified, initial encounter Base Code: T78.2XXA - ANAPHYLACTIC SHOCK, UNSPECIFIED, INITIAL ENCOUNTER Comment: 12/10/18 -pt given benadryl, epi, and solumedrol s/p allergic reaction to IV contrast dye 12/09/18 with CTA chest -pt in no distress this AM -d/c with clartin, pepcid, and benadryl at HS x 3 days (2) DVT of proximal leg (deep vein thrombosis) Status: Acute Discharge Diagnosis: Chronicity: acute Laterality: right Qualified Code(s): I82.4Y1 - Acute embolism and thrombosis of unspecified deep veins of right proximal lower extremity Base Code: I82.4Y9 - ACUTE EMBLSM AND THOMBOS UNSP DEEP VN UNSP PROX LOW EXTRM Comment: 12/10/18 -eliquis 10mg BID x 7 days then 5mg BID -f/u PCP in 1 week -no heavy lifting until released by PCP (3) Full code status Status: Acute Base Code: Z78.9 - OTHER SPECIFIED HEALTH STATUS Comment: 12/10 -full code status - Hospitalization Course Disposition: Home, Self-Care Hospital Course: 68 yo male presents for c/o zachariah calf pain and swelling. 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 Both calves were painful and swollen, called his PCP Dr Conde. She instructed him to elevate his legs, this helped with the edema but did not resolve the pain. PMH HTN, no h/o DVT. 12/09/18 Pt ambulated into [facility] ER for zachariah leg pain and swelling. Denies injury or previous issues. WBC 5.3, Hgb 14.3, Hct 40.6, Plt 178 na 139, K 3.9, BUn 16, Cr 1.2, GFR>60, glucose 111, trop <0.010 97.9, 77, 144/88, 18, 100% RA US revealed right iliac vein non-occlusive clot, no other DVT noted. CTA ordered to r/o PE r/t to the DVT. CTA neg for PE but pt had an anaphylactic reaction to IV contrast. Was given Benadryl 25mg IVP, solumedrol 125mg IVP, and epi 0.3mg IM that resolved the reaction. Subsequent findings of lung nodules, repeat CT in 6 mon with PCP. Admitted for observation s/p anaphylactic reaction, lovenox SQ started for DVT tx. 12/10/18 Pt resting in bed, no distress noted. Pt denies any difficulty breathing, no edema of lips or tongue. Lungs CTA, moving all extremities without difficult. Pulses equal +3 radial, PT, DP. Non pitting edema noted BLE. Pt reports he needs to be D/C's early this AM because he has a small dog at home that has been alone since he came into ER the evening before. Pt denies any needs, states he is in contact with his PCP and will follow up. Pt educated on the danger of the reaction he had, will take claritin 10mg qd and benadryl 25mg QHS for 1 week. POC to start Eliquis for DVT tx. Pt verbalized understanding of new medications. PCP Dr Conde Procedures: Imaging and X-Rays 12/09/18 18:24 VENOUS DOPPLER LOWER EXT ZACHARIAH [US] Stat 12/09/18 20:27 CHEST CTA w contrast [CTA] Stat Cardiology Procedures 12/09/18 22:09 EKG NOW 12/09/18 23:41 Instructional Technology Specialist .Continuous Abnormal Labs: Abnormal Lab Results 12/09/18 12/09/18 Range/Units 18:35 18:35 Hct 40.6 L (42.0-52.0) % MPV 10.6 H (7.4-10.4) fl Random Glucose 111 H (74-109) mg/dL Condition at Discharge: (2) Stable Discharge Medications - Discharge Medications Prescriptions: Apixaban [Eliquis] 10 mg PO BID 7 Days #28 tablet Loratadine [Claritin] 10 mg PO DAILY #30 tablet Home Medications: Ambulatory Orders Apixaban [Eliquis] 10 mg PO BID 7 Days #28 tablet 12/10/18 [Last Taken Unknown] Loratadine [Claritin] 10 mg PO DAILY #30 tablet 12/10/18 [Last Taken Unknown] Discharge Plan - Discharge Instructions Activity at Discharge: Return To Work Once Cleared By Your PCP/Specialist Diet at Discharge: Regular Diet Instructions: Anaphylaxis (DC), Deep Venous Thrombosis (DC) Additional Instructions: Appointment with Dr. Conde on Saturday12/16/18 at 10AM Meet with Leslie rivera to work on Advance Care Planning STOP meloxicam until you see Dr Conde and discuss this with her while on the blood thinners You may notice it takes longer for small cuts and injuries to stop bleeding, hold pressure and keep the areas covered. Go to ER for any fall where you hit your head, call 911 for any fall that results in a loss of consciousness. No heavy lifting until released by Dr Conde. I have sent Eliquis prescription, you are takin g10mg twice a day for 7 days and then 5 mg twice a day after that but those will be prescribed by Dr Conde Take the claritin for 1 week in the morning and bendaryl 25mg at night for 1 week. Quality Measures - Quality Measures Quality Measures: Advance Directives, Documentation of Current Medications in Medical Record, Elder Maltreatment Screen and Follow-Up Plan, Screening for High Blood Pressure and F/U Documented - Current Medications Quality Measure: Measure #130: Documentation of Current Medications Documentation of Current Medications: <Current Medications Documented/Reviewed> [[id number]] - Blood Pressure Screening Quality Measure: Screening for High Blood Pressure and Follow-Up Documented Does Patient Have Any of the Following: Active Dx of HTN Blood Pressure Classification: Pre-Hypertensive BP Reading Systolic Measurement: 144 Diastolic Measurement: 88 Screening for High Blood Pressure: Patient Exclusion, Hx of HTN [[id number]] Pre-Hypertensive Follow-up Interventions: Referral to alternative/primary care provider. - Advance Directives Quality Measure: Measure #47: Care Plan Advance Directives Established: No Advance Directives Information Provided To Patient: No Advance Directives on File: No Living Will: No Power of Pediatrician/Medical Doctor: No Advance Care Planning: <Care Plan/Decision Maker Not Decided; Discussed & Documented> [[id number]] - Elder Abuse Suspicion Index Screening: Elder Abuse Suspicion Index Screening Rely on people for bathing, dressing, shopping, banking, etc: No Prevented from getting food, clothes, medication, etc: No Made to feel shamed or threatened by someone: No Forced to sign papers or use money against will: No Feel afraid, touched in ways not wanted or hurt physically: No Poor eye contact, withdrawn, malnourished, cuts or bruises: No Screening Result: Negative result EASI Reference Information: Denys FONTAINE, Delaney C, Alisa D, Rohan Govea.Development and validation of a tool to assist physicians identification of elder abuse: The Elder Abuse Suspicion Index (EASI ). Journal of Elder Abuse and Neglect, 2008; 20 (3): 276-300. - Elder Maltreatment Screen Quality Measures: Elder Maltreatment Screen and Follow-Up Plan Elder Maltreatment Screen: <Negative, No Follow-Up Plan Required> [G8734]
== END 2018-12-10 11:55 | disposition home or self-care (01) ==
LOC: ER 18:14 → MEDSURG 23:34
PROVIDERS: ADMIT Internal Medicine; ATTEND Internal Medicine
DX: I82.4Y1 Acute embolism and thrombosis of unspecified deep veins of right proximal lower extremity (principal); T78.2XXA Anaphylactic shock, unspecified, initial encounter; M79.662 Pain in left lower leg; M79.661 Pain in right lower leg; I10 Essential (primary) hypertension; K21.9 Gastro-esophageal reflux disease without esophagitis; M19.90 Unspecified osteoarthritis, unspecified site; F12.90 Cannabis use, unspecified, uncomplicated; Z87.891 Personal history of nicotine dependence
CPT/HCPCS: 82550; 85025; 80048; 84484 ×2; 93970; 71275; 93005; 93010; G0378 ×2; Q9967; J2060; J3490; 96365; 96366; 96372; 96374; 96375; 99220; 99239; 99285; 99291; J0171; J1200; J1650; J2930; J7030